=== PATIENT | female | born 1965 | race Caucasian/White ===

== ENCOUNTER → 2016-11-23 | Outpatient (CLI) | payer BC ==
--- NOTE | 2016-11-23 20:39 | MR ---
EXAMINATION TYPE: MR abdomen wo/w con DATE OF EXAM: 11/23/2016 COMPARISON: MR abdomen dated 08/16/2015 HISTORY: colon cancer ; follow-up examination CONTRAST: Standard multiplanar, multisequence MRI departmental protocol utilizing 6 mL intravenous Gadavist carla olinium contrast. FINDINGS: There is no signal dropout on out of phase imaging of the hepatic parenchyma to relate to h epatic steatosis. There areT2 hyperintense and T1 hypointense nonenhancing simple cysts measuring 9 i n segment 2 and in segment 4A near the hepatic dome 7 mm. Pulsation artifact is seen from the aorta o verlying the left hepatic lobe creating a pseudolesion. Lung bases, spleen, pancreas, and gallbladder are within normal limits. Spleen is within normal limit s of size measuring 10.9 cm in craniocaudal dimension. No abnormal enhancement. Bilateral renal sinus and cortical cysts are seen that do not enhance. Osseous structures are unremarkable. No evidence of adenopathy. IMPRESSION: Stable hepatic cysts and cortical renal cysts with no evidence of adenopathy or visceral metastasis.
== END | disposition home or self-care (01) ==
LOC: RADMRIMAIN 08:29
PROVIDERS: ATTEND Internal Medicine Hematology & Oncology
DX: K76.89 Other specified diseases of liver (principal); N28.1 Cyst of kidney, acquired; C18.7 Malignant neoplasm of sigmoid colon
CPT/HCPCS: 74183; A9581

== ENCOUNTER 2022-10-06 15:43 | Emergency (ER) | payer OTHER ==
[2022-10-06 16:05] VITALS: BP 125/77; PULSE 105; RESP 20; TEMP 99.6
--- NOTE | 2022-10-06 17:22 | ED ---
General Adult HPI - General Chief complaint: Psychiatric Symptoms Stated complaint: Mental Health Time Seen by Provider: 10/06/22 16:55 Source: patient, RN notes reviewed Mode of arrival: ambulatory Limitations: no limitations - History of Present Illness Initial comments: Patient is a pleasant 57-year-old female presenting to the emergency department with concerns for anxiety and depression. Symptoms are somewhat chronic. Patient does have history of bipolar however overall was doing well. Patient states symptoms are worse the past couple of months. Patient has been having problems with her mother aging and insomnia. Patient has increased stress and anxiety. No new physical complaints. No suicidal or homicidal thoughts. No alcohol or street drug use. - Related Data Home Medications Medication Instructions Recorded Confirmed Progesterone, Micronized 100 mg PO HS 12/02/21 10/06/22 [Progesterone] Nitrofurantoin Monohyd/M-Cryst 100 mg PO Q12HR 10/06/22 10/06/22 [Macrobid] Temazepam [Restoril] 15 mg PO HS 10/06/22 10/06/22 busPIRone HCl [Buspar] 5 mg PO BID 10/06/22 10/06/22 Allergies Allergy/AdvReac Type Severity Reaction Status Date / Time No Known Allergies Allergy Verified 10/06/22 17:08 Review of Systems ROS Statement: Those systems with pertinent positive or pertinent negative responses have been documented in the HPI. ROS Other: All systems not noted in ROS Statement are negative. Constitutional: Denies: fever Eyes: Denies: eye pain ENT: Denies: ear pain Respiratory: Denies: cough Cardiovascular: Denies: chest pain Gastrointestinal: Denies: abdominal pain Psychiatric: Reports: anxiety, depression. Denies: auditory hallucinations, visual hallucinations, homicidal thoughts, suicidal thoughts Past Medical History Past Medical History: Cancer Additional Past Medical History / Comment(s): HX COLON CANCER 2013 History of Any Multi-Drug Resistant Organisms: None Reported Past Surgical History: Bowel Resection Additional Past Surgical History / Comment(s): BOWEL RESECTION, COLONOSCOPY, REPAIR DEVIATED SEPTUM Past Anesthesia/Blood Transfusion Reactions: No Reported Reaction Past Psychological History: Bipolar Smoking Status: Never smoker Past Alcohol Use History: None Reported Past Drug Use History: None Reported - Past Family History Mother Family Medical History: No Reported History General Exam Limitations: no limitations General appearance: alert, in no apparent distress Head exam: Present: normocephalic Eye exam: Present: normal appearance Neck exam: Present: normal inspection Respiratory exam: Present: normal lung sounds bilaterally Cardiovascular Exam: Present: regular rate, normal rhythm GI/Abdominal exam: Present: soft. Absent: tenderness Extremities exam: Present: normal inspection Neurological exam: Present: alert Psychiatric exam: Present: anxious Skin exam: Present: normal color Course Vital Signs 10/06/22 16:00 Temperature 99.6 F Pulse Rate 105 H Respiratory 20 Rate Blood Pressure 125/77 O2 Sat by Pulse 97 Oximetry Medical Decision Making - Medical Decision Making Was pt. sent in by a medical professional or institution (, PA, PROPERTY DAMAGE CLAIMS ADJUSTOR, urgent care, hospital, or fci...) When possible be specific @ -No Did you speak to anyone other than the patient for history (EMS, parent, family, police, friend...)? What history was obtained from this source @ -Family is present to help provide history. They do add that patient has only taken one of her antibiotics so far. Did you review nursing and triage notes (agree or disagree)? Why? @ -I reviewed and agree with nursing and triage notes Were old charts reviewed (outside hosp., previous admission, EMS record, old EKG, old radiological studies, urgent care reports/EKG's, fci records)? Report findings @ -No old charts were reviewed Differential Diagnosis (chest pain, altered mental status, abdominal pain women, abdominal pain men, vaginal bleeding, weakness, fever, dyspnea, syncope, headache, dizziness, GI bleed, back pain, seizure, CVA, palpatations, mental health, musculoskeletal)? @ -Differential Mental Health Depression, anxiety, bipolar, psychosis, schizophrenia, borderline personality, situational depression, adjustment disorder, behavioral disorder, brain tumor, malingering, substance abuse, encephalopathy, medication reaction, dementia, hypothyroidism, degenerative neurologic disorder, lupus.... This is not meant to be all-inclusive list EKG interpreted by me (3pts min.). @ -As above X-rays interpreted by me (1pt min.). @ -None done CT interpreted by me (1pt min.). @ -None done U/S interpreted by me (1pt. min.). @ -None done What testing was considered but not performed or refused? (CT, X-rays, U/S, labs)? Why? @ -None What meds were considered but not given or refused? Why? @ -Consider changing antibiotics for urinary tract infection however patient is only taken one pill so far and therefore is recommended that she continues this. Did you discuss the management of the patient with other professionals (professionals i.e. , PA, PROPERTY DAMAGE CLAIMS ADJUSTOR, lab, RT, psych nurse, manager social media, kit planner, teacher, boating safety officer, returned case inspector)? Give summary @ -Case was discussed with mental health nurse with plan for discharge with Ativan to go home Was smoking cessation discussed for >3mins.? @ -No Was critical care preformed (if so, how long)? @ -No Were there social determinants of health that impacted care today? How? (Homelessness, low income, unemployed, alcoholism, drug addiction, transportation, low edu. Level, literacy, decrease access to med. care, correction, rehab)? @ -No Was there de-escalation of care discussed even if they declined (Discuss DNR or withdrawal of care, Hospice)? DNR status @ -No What co-morbidities impacted this encounter? (DM, HTN, Smoking, COPD, CAD, Cancer, CVA, ARF, Chemo, Hep., AIDS, mental health diagnosis, sleep apnea, morbid obesity)? @ -None Was patient admitted / discharged? Hospital course, mention meds given and route, prescriptions, significant lab abnormalities, going to OR and other pertinent info. @ -Patient will be discharged with Ativan to take home. Continue antibiotic. Undiagnosed new problem with uncertain prognosis? @ -No Drug Therapy requiring intensive monitoring for toxicity (Heparin, Nitro, Insulin, Cardizem)? @ -No Were any procedures done? @ -No Diagnosis/symptom? @ -Urinary tract infection, anxiety Acute, or Chronic, or Acute on Chronic? @ -Acute, acute on chronic Uncomplicated (without systemic symptoms) or Complicated (systemic symptoms)? @ -default Side effects of treatment? @ -No Exacerbation, Progression, or Severe Exacerbation? @ -No Poses a threat to life or bodily function? How? (Chest pain, [place], [place], pneumonia, PE, COPD, DKA, ARF, appy, cholecystitis, CVA, Diverticulitis, Homicidal, Suicidal, threat to staff... and all critical care pts) @ -No - Lab Data Lab Results 10/06/22 Range/Units 18:51 Urine Color Light Yellow Urine Appearance Cloudy H (Clear) Urine pH 6.0 (5.0-8.0) Ur Specific Gervais 1.005 (1.001-1.035) Urine Protein Trace H (Negative) Urine Glucose (UA) Negative (Negative) Urine Ketones Negative (Negative) Urine Blood Moderate H (Negative) Urine Nitrite Negative (Negative) Urine Bilirubin Negative (Negative) Urine Urobilinogen <2.0 (<2.0) mg/dL Ur Leukocyte Esterase Large H (Negative) Urine RBC 2 (0-5) /hpf Urine WBC 135 H (0-5) /hpf Urine WBC Clumps Few H (None) /hpf Ur Squamous Epith Cells <1 (0-4) /hpf Urine Bacteria Rare H (None) /hpf Urine Mucus Rare H (None) /hpf Urine Opiates Screen Not Detected (NotDetected) Ur Oxycodone Screen Not Detected (NotDetected) Urine Methadone Screen Not Detected (NotDetected) Ur Propoxyphene Screen Not Detected (NotDetected) Ur Barbiturates Screen Not Detected (NotDetected) U Tricyclic Antidepress Not Detected (NotDetected) Ur Phencyclidine Scrn Not Detected (NotDetected) Ur Amphetamines Screen Not Detected (NotDetected) U Methamphetamines Scrn Not Detected (NotDetected) U Benzodiazepines Scrn Detected H (NotDetected) Urine Cocaine Screen Not Detected (NotDetected) U Marijuana (THC) Screen Detected H (NotDetected) Disposition Clinical Impression: Acute anxiety, Urinary tract infection Disposition: HOME SELF-CARE Condition: Stable Instructions (If sedation given, give patient instructions): Urinary Tract Infection in Women (ED), Anxiety (ED) Additional Instructions: Please do follow-up with primary care physician beginning of the week. Please also follow-up with mental health services as directed. Continue antibiotics. Please take the Ativan, one half dose tomorrow if needed and one half dose the next day if needed. Return for thoughts of self-harm, fevers, abdominal pain, vomiting, worsening symptoms or other concerns. Is patient prescribed a controlled substance at d/c from ED?: No Referrals: Bailey Hobbs MD [Primary Care Provider] - 1-2 days Time of Disposition: 20:27
[2022-10-06] MEDS ORDERED: LORazepam 1 MG TAB PO STA ×2 (18:36→20:23)
[2022-10-06 20:01] LABS: Appearance,Urine Cloudy (Clear); Bacteria,Urine Rare /hpf; Bilirubin,Urine Negative (Negative); Blood,Urine Moderate (Negative); Color,Urine Light Yellow; Glucose,Urine (UA) Negative (Negative); Ketones,Urine Negative (Negative); Leukocyte Esterase,Urine Large (Negative); Mucus,Urine Rare /hpf; Nitrite,Urine Negative (Negative); Protein,Urine Trace (Negative); RBC,Urine 2 /hpf (0-5); Specific Gravity,Urine 1.005 (1.001-1.035); Squamous Epithelial Cell,Urine <1 /hpf (0-4); Urobilinogen,Urine <2.0 mg/dL (<2.0); WBC,Urine 135 /hpf (0-5)
[2022-10-06 20:02] LABS: Amphetamine Screen,Urine Not Detected (NotDetected); Barbiturate Screen,Urine Not Detected (NotDetected); Benzodiazepines Screen,Urine Detected (NotDetected); Cocaine Screen,Urine Not Detected (NotDetected); Methadone Screen, Urine Not Detected (NotDetected); Opiate Screen,Urine Not Detected (NotDetected); Oxycodone Screen, Urine Not Detected (NotDetected); Phencyclidine Screen,Urine Not Detected (NotDetected); Tricyclic Antidepressant,Urine Not Detected (NotDetected); Urn Cannabinoid Scrn Detected (NotDetected)
== END 2022-10-06 20:43 | disposition home or self-care (01) ==
LOC: EC 15:43
DX: F41.9 Anxiety disorder, unspecified (principal); N39.0 Urinary tract infection, site not specified; F31.9 Bipolar disorder, unspecified; Z79.899 Other long term (current) drug therapy
CPT/HCPCS: 80306; 81001; 82075; 87086; 99285

== ENCOUNTER 2023-11-09 11:26 | Day surgery (SDC) | payer OTHER ==
[2023-11-09] MEDS: IV FLUID CONTINUATION 1,000 ML IV ONE (12:35)
[2023-11-09 12:45] VITALS: TEMP 98
[2023-11-09] MEDS ORDERED: PROPOFOL 10 MG/ML 20 ML VIAL IV ONE (13:18)
--- NOTE | 2023-11-09 13:44 | P.PCN ---
Date of Procedure: 11/09/23 Procedure(s) Performed: BRIEF HISTORY: Patient is a 58-year-old pleasant white female scheduled for an elective colonoscopy as a part of surveillance of colon cancer. She was diagnosed with colon cancer in 2014 and is s/p surgery. Last colonoscopy was 3 years ago. Lately she has been having crampy lower abdominal pain and diarrhea for 3 months. PROCEDURE PERFORMED: Colonoscopy with biopsy and snare polypectomy. PREOPERATIVE DIAGNOSIS: History of colon cancer diagnosed in 2014. IV sedation per Anesthesia. PROCEDURE: After informed consent was obtained, the patient, was brought into the endoscopy unit. IV sedation was administered by Anesthesia under continuous monitoring. Digital rectal examination was normal. Initially the Olympus CF-160 flexible video colonoscope was then inserted in the rectum, gradually advanced into the cecum without any difficulty. Careful examination was performed as the scope was gradually being withdrawn. Ileocecal valve and the appendiceal orifice were visualized and appeared normal. Prep was fair.. Mucosa of the cecum, ascending colon appeared normal. The transverse colon there was a 6 mm polyp that was removed by cold snare polypectomy. Rest of the, transverse colon, descending colon, sigmoid colon, and rectum appeared normal. The anastomosis wa s located at 15 cm from the anal verge. Retroflexion was performed in the rectum and no lesions were seen. The patient tolerated the procedure well. IMPRESSION: 6 mm transverse colon polyp status post cold snare polypectomy Rest of the colon appeared normal Anastomosis located at 15 cm from the anal verge that appeared normal RECOMMENDATIONS: Findings of this examination were discussed with the patient as well as her family. She was advised to follow-up with the biopsy results. Recommended repeat colonoscopy in 2 years..
[2023-11-09] MEDS ORDERED: LACTATED RINGERS 1,000 ML BAG IV STA (14:08)
[2023-11-09] MEDS ORDERED: LACTATED RINGERS 1,000 ML IV SCH (14:08)
[2023-11-09 14:36] VITALS: RESP 14
[2023-11-09 14:38] VITALS: BP 115/58; PULSE 70
== END 2023-11-09 14:30 | disposition home or self-care (01) ==
LOC: ORWHC2ENDO 11:26
PROVIDERS: ATTEND Internal Medicine Gastroenterology
DX: Z80.0 Family history of malignant neoplasm of digestive organs
CPT/HCPCS: 45380; 45385; 88305